=== PATIENT | male | born 1970 ===

== ENCOUNTER → 2024-01-08 07:31 | Outpatient (REF) | payer BC, SELFPAY | LOC: MRI 3T 07:31 | PROVIDERS: ATTENDING PHYSICIAN Specialist; FAMILY PHYSICIAN Physician Assistant Medical | DX: R97.20 Elevated prostate specific antigen [PSA] (principal) | CPT/HCPCS: 72197; A9575 ==

== ENCOUNTER → 2025-10-25 07:28 | Outpatient (REF) | payer BC, SELFPAY | LOC: HWRCS 07:28 | PROVIDERS: ATTENDING PHYSICIAN Internal Medicine Cardiovascular Disease; FAMILY PHYSICIAN Physician Assistant Medical | DX: R07.89 Other chest pain (principal) | CPT/HCPCS: 78452; 93017; A9500 ==